=== PATIENT | male | born 1990 | race American Indian/Alaskan Native ===

== ENCOUNTER 2016-08-22 17:52 | Emergency (ER) | payer MEDICAID, OTHER | END 2016-08-22 19:43 | disposition left against medical advice (07) | LOC: DL.ED 17:52 | DX: Z53.21 Procedure and treatment not carried out due to patient leaving prior to being seen by health care provider (principal) | CPT/HCPCS: 99283 ==

== ENCOUNTER 2016-08-24 20:10 | Emergency (ER) | payer MEDICAID, OTHER ==
[2016-08-24] MEDS ORDERED: Amoxicillin 500 MG Cap PO ONE (22:39)
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
[2016-08-24 22:55] VITALS: BP 123/76
== END 2016-08-24 22:50 | disposition home or self-care (01) ==
LOC: DL.ED 20:10
DX: K04.7 Periapical abscess without sinus (principal); F17.210 Nicotine dependence, cigarettes, uncomplicated
CPT/HCPCS: 99283; A9270

== ENCOUNTER 2022-11-18 00:29 | Emergency (ER) | payer SELFPAY ==
[2022-11-18 01:28] VITALS: BP 90/57; PULSE 67
[2022-11-18 01:34] LABS: A/G RATIO 1.2; ALANINE AMINOTRANSFERASE,ALT 25 U/L (16-63); ALBUMIN 3.7 g/dL (3.4-5.0); ALKALINE PHOSPHATASE 109 U/L (46-116); ANION GAP 14.1 mEq/L (7-13); ASPARTATE AMNIOTRANSFERASE,AST 22 U/L (15-37); BILIRUBIN TOTAL 0.3 mg/dL (0.2-1.0); BLOOD UREA NITROGEN,BUN 22 mg/dL (7-18); BUN/CREATININE RATIO 25.9 (No establ ref range); CALCIUM 8.2 mg/dL (8.5-10.1); CARBON DIOXIDE,CO2 24 mmol/L (21-32); CHLORIDE,CL 105 mmol/L (98-107); CREATININE 0.85 mg/dL (0.70-1.30); ESTIMATED GFR 118 mL/min (>=60); ETHANOL BLOOD MEDICAL 215 mg/dL (0); GLUCOSE RANDOM 102 mg/dL (70-99); POTASSIUM,K 3.1 mmol/L (3.5-5.1); PROTEIN TOTAL,TP 6.8 g/dL (6.4-8.2); SODIUM,NA 140 mmol/L (136-145)
[2022-11-18] MEDS ORDERED: Sodium Chloride 0.9% 1,000 ML IV ONE (01:38)
[2022-11-18] MEDS ORDERED: Potassium Chloride 10 MEQ Tab.ER PO ONE (06:14)
== END 2022-11-18 06:35 | disposition home or self-care (01) ==
LOC: DL.ED 00:29
DX: F10.929 Alcohol use, unspecified with intoxication, unspecified (principal); E87.6 Hypokalemia; I95.9 Hypotension, unspecified
CPT/HCPCS: 36415; 70450; 80053; 80307; 93005; 93010; 96360; 99285-25; 99291; 99292; A9270-GY; J7030